=== PATIENT | male | born 1970 | race Caucasian/White ===

== ENCOUNTER 2016-09-05 10:13 | Emergency (ER) | payer BC, OTHER ==
[~2016-09-05] VITALS: Ht 180.3 cm; Wt 86.5 kg
[~2016-09-05 10:13] MED LIST: CEPH-443 PO; IBUP400T22 PO; SULF1TAB31 PO
[2016-09-05 10:18] VITALS: Ht 180.3 cm; Wt 86.5 kg
--- NOTE | 2016-09-05 11:29 | ERD ---
ER Documentation Chief Complaint Date/Time DATE: 09/05/16 TIME: 11:18 Chief Complaint L arm bite swelling and pain X 4 days, feeling dizzy this morning. HPI 46-year-old male with history of alopecia presents the emergency department for complaints of an insect bite with swelling and pain to the left arm which began 4 days ago. Patient states he was recently moving boxes and felt a small bite on his arm. He states since that time he has noticed gradually increasing swelling with discharge. Patient denies fever, chills, nausea, vomiting, diarrhea or abdominal pain. He reports a mild 1 out of 10 throbbing pain which intermittently increases to a 4 out of 10. He notes intermittent tingling sensation along his left upper extremity. He denies aggravating or alleviating symptoms. He has not attempted to treat his symptoms as far with any medication. He denies history of diabetes. ROS All systems reviewed and are negative except as per history of present illness. Medications Home Meds Active Scripts Ibuprofen* (Motrin*) 400 Mg Tab, 400 MG PO Q6, #30 TAB 0 Refills Prov:SOHAN MCKEON PA-C 05/26/15 Sulfamethoxazole-Trimethoprim (Bactrim DS Tablet) 800-160 Mg Tab, 1 TAB PO BID, #14 TAB 0 Refills Prov:SOHAN MCKEON PA-C 05/26/15 Cephalexin* (Keflex*) 500 Mg Capsule, 500 MG PO QID for 28 Days, CAP 0 Refills Prov:SOHAN MCKEON PA-C 05/26/15 Allergies Allergies: Coded Allergies: No Known Allergy (Unverified , 05/26/15) PMhx/Soc History of Surgery: Yes (NOSE) Hx Alcohol Use: Yes (SOMETIMES) Hx Substance Use: No Hx Tobacco Use: Yes Physical Exam Vitals Vital Signs Date Time Temp Pulse Resp B/P Pulse Ox O2 Delivery O2 Flow Rate FiO2 09/05/16 10:18 97.6 90 14 169/84 97 Physical Exam Const: Well-developed, well-nourished, no acute distress Head: Atraumatic Eyes: Normal Conjunctiva ENT: Normal External Ears, Nose and Mouth. Neck: Full range of motion..~ No meningismus. Resp: Clear to auscultation bilaterally Cardio: Regular rate and rhythm, no murmurs Abd: Soft, non tender, non distended. Normal bowel sounds Skin: 2 cm open wound with purulent discharge and 5 cm area of surrounding erythema located at the AC region of the left upper extremity. There is no swelling or tenderness to palpation. No expression of discharge upon palpation. There is a 1 cm open lesion at the mid forearm with mild surrounding erythema. No swelling no discharge. No tenderness to palpation. Back: No midline or flank tenderness Ext: Patient has full range of motion at elbow wrist and fingers of the left upper extremity. Radial median and ulnar motor function intact. Patient able to pronate and supinate. 2 point discrimination intact on radial and ulnar aspects of all 5 fingers distally. Radial pulse 2+. No cyanosis. Capillary refill. Neur: Awake and alert Psych: Normal Mood and Affect Procedures/MDM This is a 46-year-old male with a history of alopecia who presents emergency department for complaints of isolated areas of redness, swelling, and drainage at the site of presumed insect bites which has gradually worsened over the past 4 days. Patient well-appearing, nontoxic, afebrile, non-tachycardic and non- hypoxic upon arrival. Patient's blood pressure was elevated to 169/84. Patient 's blood pressure was elevated (>120/80) but appears stable without evidence of hypertension emergency or urgency. The patient was counseled about the risks of hypertension and urged to pursue outpatient monitoring and therapy within a week with their primary care physician. Physical exam revealed evidence of 2 open wounds with purulent discharge and mild surrounding erythema. There is no major swelling, cyanosis, or neurovascular deficit to the affected upper extremity. History and physical consistent with cellulitis likely due to an insect bite. Patient's wounds were cleansed and dressed while in the emergency department. Patient refused any IV medication as he does not like needles. He is to begin oral and topical antibiotics. Return in 48 hours if symptoms worsen or he develops an uncontrollable fever. Low suspicion for deep abscess formation, osteomyelitis, systemic illness or sepsis. Based on patient's history of present illness and physical examination the decision was made to discharge. The patient was re-evaluated after ED treatment and stabilizing measures, and symptoms have improved. There is no evidence of life threatening injuries or illnesses at this time. On re-examination, patient resting in no distress, stable vital signs, reports feeling better and safe for discharge with outpatient follow up with PMD in 1-2 days. Patient given return precautions. Departure Diagnosis: Primary Impression: Infected bite wound Additional Impressions: Cellulitis Site of cellulitis: other site Qualified Code: L03.818 - Cellulitis of other specified site Open wound SHIRA DAIGLE PA-C Sep 05, 2016 11:29
[2016-09-05] MEDS ORDERED: SULF1TAB31 PO (11:30)
[2016-09-05] MEDS ORDERED: MUPI22OI2 TOP (11:30)
[2016-09-05] MEDS ORDERED: MUPIROCIN 2% 22 GM OINT TOP ONE (11:30)
== END 2016-09-05 11:54 | disposition home or self-care (01) ==
LOC: FTE 10:13
DX: S40.862A Insect bite (nonvenomous) of left upper arm, initial encounter (principal); L03.818 Cellulitis of other sites; S41.102A Unspecified open wound of left upper arm, initial encounter; L08.89 Other specified local infections of the skin and subcutaneous tissue; W57.XXXA Bitten or stung by nonvenomous insect and other nonvenomous arthropods, initial encounter; Y92.9 Unspecified place or not applicable; Z87.891 Personal history of nicotine dependence
CPT/HCPCS: 99284